=== PATIENT | female | born 1965 | race Caucasian/White ===

== ENCOUNTER 2017-03-03 13:03 | Emergency (ER) | payer BC ==
[2014-12-30 08:57] VITALS: BMI 23.7
[~2017-03-03 13:03] MED LIST: ACIPHEX20 MG PO; ADDERALL 10 MG10 MG PO; AMBIEN10 MG PO
[2017-03-03 14:17] LABS: BASOPHILS 0.4 % (0-2); EOSINOPHILS 0.3 % (0-7); HEMATOCRIT 52.5 % (36.0-48.0); HEMOGLOBIN 17.7 g/dL (12-16); IMMATURE GRANULOCYTES 0.3 % (0-5); LYMPHOCYTES 23.7 % (15-50); MCH 34.3 pg (26.0-34.0); MCHC 33.7 g/dL (31.0-37.0); MCV 101.7 fL (80.0-100.0); MONOCYTES 7.2 % (2-11); NEUTROPHILS 68.1 % (40-80); PLATELET COUNT 189 10x3/uL (130-400); RBC 5.16 10x6/uL (4.00-5.40); WBC 9.9 10x3/uL (4.8-10.8)
[2017-03-03 14:43] LABS: ALBUMIN 3.8 g/dL (3.4-5.0); ALKALINE PHOSPHATASE 66 U/L (46-116); ALT (SGPT) 25 U/L (10-68); BILIRUBIN - TOTAL 0.42 mg/dL (0.2-1.3); CALC OSMOLALITY 279 mosm/kg (275-300); CALCIUM 9.4 mg/dL (8.5-10.1); CARBON DIOXIDE 30.5 mmol/L (21.0-32.0); CHLORIDE - SERUM 103 mmol/L (98-107); CREATININE - SERUM 0.8 mg/dL (0.6-1.3); GLUCOSE 85 mg/dL (74-106); POTASSIUM - SERUM 4.2 mmol/L (3.5-5.1); PROTEIN - SERUM 7.1 g/dL (6.4-8.2); SODIUM 140 mmol/L (136-145); UREA NITROGEN 17 mg/dL (7-18); eGFR NON AFRICAN AMERICAN 79 mL/min (90-120)
== END 2017-03-03 17:19 | disposition other institution (70) ==
LOC: D.ER 13:03
PROVIDERS: Emergency Medicine
DX: G81.91 Hemiplegia, unspecified affecting right dominant side (principal); R53.1 Weakness; F17.200 Nicotine dependence, unspecified, uncomplicated